=== PATIENT | male | born 1990 | race African-American/Black ===

== ENCOUNTER 2019-11-25 17:21 | Emergency (ER) | payer MEDICAID ==
[~2019-11-25] VITALS: Ht 172.7 cm; Wt 85.0 kg
[2019-11-25 18:46] LABS: EOSINOPHILS % 4.8 % (0.0-5.0); HEMATOCRIT. 39.4 % (42.0-52.0); LYMPHOCYTES % 15.4 % (20.0-50.0); MEAN CORPUSCULAR HEMOGLOBIN 30.2 pg (28.0-32.0); MEAN CORPUSCULAR VOLUME 91.1 fL (80.0-94.0); MEAN PLATELET VOLUME 8.8 fl (7.4-10.4); NEUTROPHILS % 69.8 % (40.0-76.0); PLATELET 324 x1000/uL (130-400); RED BLOOD CELL COUNT 4.32 mill/uL (4.7-6.1); RED CELL DISTRIBUTION WIDTH 15.2 % (11.6-14.6)
[2019-11-25 18:51] LABS: CHLORIDE 107 mEq/L (98-107)
[2019-11-25 18:55] LABS: ETHANOL BLOOD < 10 mg/dL
[2019-11-25 20:05] LABS: CLARITY URINE CLEAR (CLEAR); COLOR URINE YELLOW (YELLOW); KETONES URINE 2+ (NEGATIVE); LEUKOCYTE ESTERASE URINE TRACE (NEGATIVE); NITRITE URINE NEGATIVE (NEGATIVE); OCCULT BLOOD URINE NEGATIVE (NEGATIVE); PH URINE 6.5 (4.5-8.0); PROTEIN URINE TRACE (NEGATIVE); SPECIFIC GRAVITY URINE 1.022 (1.005-1.030)
[2019-11-25 20:15] LABS: *AMPHETAMINES SCREEN URINE PRESUMTIVE POSITIVE (NEGATIVE); *BARBITURATES SCREEN URINE NEGATIVE (NEGATIVE)
[2019-11-25 20:16] LABS: *BENZODIAZEPINES SCREEN URINE NEGATIVE (NEGATIVE); *COCAINE SCREEN URINE NEGATIVE (NEGATIVE); METHADONE URINE SCREEN NEGATIVE (NEGATIVE); OPIATES URINE SCREEN NEGATIVE (NEGATIVE); PHENCYCLIDINE URINE SCREEN NEGATIVE (NEGATIVE)
[2019-11-25 20:35] LABS: CANNABINOID URINE SCREEN PRESUMTIVE POSITIVE (NEGATIVE)
[2019-11-26 19:37] VITALS: BP 123/70
== END 2019-11-26 19:37 ==
LOC: ER 17:21
DX: R45.851 Suicidal ideations (principal)
CPT/HCPCS: 36415; 80053; 80305; 80320; 81003; 85025; 99285; G0480